=== PATIENT | female | born 2000 | race American Indian/Alaskan Native ===

== ENCOUNTER 2021-07-06 10:39 | Emergency (ER) | payer OTHER ==
--- NOTE | 2021-07-06 11:25 | Emergency Department Report ---
ED Female HPI - General Chief complaint: Urogenital-Female Stated complaint: UTI Time Seen by Provider: 07/06/21 10:52 Source: patient Mode of arrival: Ambulatory Limitations: No Limitations - History of Present Illness Initial comments: 20 year old female presents to ER with concern that her vaginal area does not feel tight and she thinks she may have BV. She has a poor historian. Patient reports that she was having urinary frequency around the or 01 August. She states that she did a telemedicine visit, and is started on antibiotic for possible UTI. She does not recall the name of the antibiotic that she was prescribed. She states that she has been taking antibiotics but she states that she had sexual intercourse, unprotected, on July 04, and after having sexual intercourse she had one episode of dysuria. She states that she no longer has dysuria urinary frequency. She states that she no longer has dysuria or urinary frequency. She states that she thinks she only has 1 more tablet left of the antibiotic that she was prescribed. She states that the main reason she came in is because her vaginal area does not feel and she is concerned she may have BV. She states that she thinks she may have a white discharge. She denies any vaginal itching or any obvious rash. She denies any pelvic pain, abdominal pain or back pain. She states that she has had the same sexual partner. She states that she is not concerned for STDs as they both had testing done a couple months ago. Complaint: vaginal discharge -: days(s) - Related Data Previous Rx's Medication Instructions Recorded Last Taken Type Fluconazole [Diflucan TAB] 200 mg PO QDAY #2 tablet 07/06/21 Unknown Rx cephALEXin [Keflex] 500 mg PO Q8HR #21 cap 07/06/21 Unknown Rx metroNIDAZOLE [Flagyl] 500 mg PO Q12HR #14 tab 07/06/21 Unknown Rx Allergies Allergy/AdvReac Type Severity Reaction Status Date / Time No Known Allergies Allergy Unverified 07/06/21 10:47 ED Review of Systems ROS: Stated complaint: UTI Other details as noted in HPI Comment: All other systems reviewed and negative Constitutional: denies: chills, fever Eyes: denies: eye pain, eye discharge, vision change ENT: denies: ear pain, throat pain Respiratory: denies: cough, shortness of breath, SOB with exertion, SOB at rest, wheezing Cardiovascular: denies: chest pain, palpitations Endocrine: no symptoms reported Gastrointestinal: denies: abdominal pain, nausea, vomiting, diarrhea, constipation, hematemesis, hematochezia Genitourinary: dysuria, frequency, discharge. denies: urgency, hematuria, abnormal menses, dyspareunia Musculoskeletal: denies: back pain, joint swelling, arthralgia Skin: denies: rash, lesions, change in color, change in hair/nails, pruritus Neurological: denies: headache, weakness, numbness, paresthesias, confusion, abnormal gait, vertigo Psychiatric: denies: anxiety, depression, auditory hallucinations, visual hallucinations, homicidal thoughts, suicidal thoughts Hematological/Lymphatic: denies: easy bleeding, easy bruising, swollen glands ED Past Medical Hx - Medications Home Medications: Home Medications Medication Instructions Recorded Confirmed Last Taken Type Fluconazole [Diflucan TAB] 200 mg PO QDAY #2 tablet 07/06/21 Unknown Rx cephALEXin [Keflex] 500 mg PO Q8HR #21 cap 07/06/21 Unknown Rx metroNIDAZOLE [Flagyl] 500 mg PO Q12HR #14 tab 07/06/21 Unknown Rx ED Physical Exam - General Limitations: No Limitations General appearance: alert, in no apparent distress - Head Head exam: Present: atraumatic, normocephalic, normal inspection - Eye Eye exam: Present: normal appearance, PERRL, EOMI Pupils: Present: normal accommodation - Neck Neck exam: Present: normal inspection, full ROM - Respiratory Respiratory exam: Present: normal lung sounds bilaterally. Absent: respiratory distress, wheezes, rales, rhonchi - Cardiovascular Cardiovascular Exam: Present: regular rate, normal rhythm, normal heart sounds - GI/Abdominal GI/Abdominal exam: Present: soft. Absent: distended, tenderness, guarding, rebound - Neurological Exam Neurological exam: Present: alert, oriented X3, CN II-XII intact, normal gait - Psychiatric Psychiatric exam: Present: normal affect, normal mood - Skin Skin exam: Present: intact ED Course Vital Signs 07/06/21 07/06/21 10:44 12:52 Temperature 98.3 F 97.2 F L Pulse Rate 87 77 Respiratory 18 18 Rate Blood Pressure 102/63 96/60 [Right] O2 Sat by Pulse 99 Oximetry ED Medical Decision Making - Medical Decision Making 20 year old female presents to ER with concern that her vaginal area does not feel tight and she thinks she may have BV. She has a poor historian. Patient reports that she was having urinary frequency around the or 01 August. She states that she did a telemedicine visit, and is started on antibiotic for possible UTI. She does not recall the name of the antibiotic that she was prescribed. She states that she has been taking antibioticsbut she states that she had sexual intercourse, unprotected, on July 04, and after having sexual intercourse she had one episode of dysuria. She states that she no longer has dysuria or urinary frequency. She states that she thinks she only has 1 more tablet left of the antibiotic that she was prescribed. She states that the main reason she came in is because her vaginal area does not feel and she is concerned she may have BV. She states that she thinks she may have a white discharge. She denies any vaginal itching or any obvious rash. She denies any pelvic pain, abdominal pain or back pain. She states that she has had the same sexual partner. She states that she is not concerned for STDs as they both had testing done a couple months ago. Urinalysis reviewed and it is concerning for UTI, and is also positive for yeast. Patient states she is concerned mainly that she may also have a BV infection and so she will be given prescription for Flagyl. Patient states that she is not concerned for gonorrhea and chlamydia and opted not to receive prophylactic treatment. Patient has no abdominal pelvic pain. She is not toxic or ill-appearing. She is afebrile, and the remaining vitals are stable. Discussed diagnoses and treatment plan with patient. Patient will follow up with [facility]. Patient stable at time of discharge. Critical care attestation.: If time is entered above; I have spent that time in minutes in the direct care of this critically ill patient, excluding procedure time. ED Disposition Clinical Impression: Yeast vaginitis, UTI (urinary tract infection) Disposition: HOME / SELF CARE / HOMELESS Is pt being admited?: No Does the pt Need Aspirin: No Condition: Stable Instructions: Vaginitis, [id number] Additional Instructions: Take the flagyl as prescribed for possible BV. Recommend I take the Diflucan as prescribed to cover for yeast infection. I recommend that you start the Keflex and take it as prescribed for UTI. Drink lots of water. Follow-up with your [facility] if your symptoms persist. Return to the ER if your symptoms changes or worsens in any way. Prescriptions: Fluconazole [Diflucan TAB] 200 mg PO QDAY #2 tablet metroNIDAZOLE [Flagyl] 500 mg PO Q12HR #14 tab cephALEXin [Keflex] 500 mg PO Q8HR #21 cap Referrals: [facility] [Provider Group] - 3-5 Days Time of Disposition: 11:31 Print Language: WOLOF
[2021-07-06 12:04] LABS: Bacteria,Urine 1+ /HPF (Negative); Bilirubin,Urine NEG (Negative); Blood,Urine NEG (Negative); Color,Urine Yellow (Yellow); Mucus,Urine FEW /HPF; Protein,Urine <15 mg/dL mg/dL (Negative); Urobilinogen,Urine < 2.0 mg/dL (<2.0)
[2021-07-06 12:20] LABS: HCG Qualitative,Urine Negative (Negative)
[2021-07-06 12:54] VITALS: BP 96/60
== END 2021-07-06 12:52 | disposition home or self-care (01) ==
LOC: ED 10:39
DX: B37.3 Candidiasis of vulva and vagina (principal); N39.0 Urinary tract infection, site not specified
CPT/HCPCS: 81001; 81025; 87086; 99283